=== PATIENT | male | born 1950 | race Caucasian/White ===

== ENCOUNTER 2021-02-16 11:11 | Outpatient (CLI) | payer MEDICARE | END 2021-02-16 11:12 | disposition home or self-care (01) | LOC: EKG 11:11 | PROVIDERS: ATTEND Psychiatry & Neurology Neurology | DX: I63.331 Cerebral infarction due to thrombosis of right posterior cerebral artery (principal); I08.1 Rheumatic disorders of both mitral and tricuspid valves; I87.8 Other specified disorders of veins | CPT/HCPCS: 93005; 93010; 93306 ==